=== PATIENT | female | born 1995 | race Caucasian/White ===

== ENCOUNTER 2018-10-19 01:13 | Emergency (ER) | payer SELFPAY ==
[2018-10-19 01:15] VITALS: BP 135/71; PULSE 90; RESP 14; TEMP 36.8; O2SAT 100; BMI 29.0
--- NOTE | 2018-10-19 01:59 | ED.DCSUM_ITS ---
- ER Visit Summary Date of Service: 10/19/18 Chief Complaint: Blood in stool History of Present Illness: The patient is a 22 F with blood in her stool on and off. She noticed this with wiping as well and some in the toilet bowl. She does have hard stools and constipation. She does not take blood thinners. No history of colonoscopy. No family history of polyps or any other rectal or colon pathology. Physical Examination: Afebrile and vital signs unremarkable. No acute distress. Skin appears normal. Abdomen soft. Rectal exam was chaperoned by Gege and shows a sentinel pile. No definite fissure, fistula, hemorrhoid, or other pathology. Test Results: None indicated Emergency Department Course and Treatment: Patient has a history and exam concerning for constipation and hard stools. She will increase her fluid intake, fiber intake. MiraLAX titration. Follow-up with primary care. Return for any new or worsening issues. Treatment Plan: As above Disposition: Discharged Impression: 1. Constipation This note was generated with [employer] dictation software. It may contain incorrect words, spelling, and punctuation that were not noted in review of the chart prior to signing ED Disposition - Plan for ED Patient: Chief Complaint: Abd Pain Referrals: Michael Lawrence [Primary Care Provider] -
--- NOTE | 2018-10-19 01:59 | ED.DEP ---
ED Disposition - Plan for ED Patient: Chief Complaint: Abd Pain Instructions: ED Constipation Prescriptions: Polyethylene Glycol 3350 [Miralax] 17 gm PO DAILY 30 Days #30 packet Referrals: Michael Lawrence [Primary Care Provider] -
[2018-10-19 02:04] VITALS: BP 135/71; PULSE 90; RESP 14; O2SAT 100
== END 2018-10-19 02:08 | disposition home or self-care (01) ==
LOC: ED 02:08
PROVIDERS: Emergency Provider Emergency Medicine
DX: K59.00 Constipation, unspecified (principal); K64.4 Residual hemorrhoidal skin tags; Z72.0 Tobacco use
CPT/HCPCS: 99282

== ENCOUNTER 2019-06-01 03:37 | Emergency (ER) | payer BC, SELFPAY ==
[2019-06-01 03:37] VITALS: BP 118/85; PULSE 87; RESP 16; TEMP 36.4; O2SAT 96; BMI 28.1
--- NOTE | 2019-06-01 03:55 | ED.DCSUM_ITS ---
- ER Visit Summary Date of Service: 06/01/19 Chief Complaint: Bump on leg History of Present Illness: The patient is a 23 F who presents with a bump on her right inner thigh. Is been increasing in size and become more painful over the last 2 to 3 days. No history of prior similar symptoms. No systemic symptoms and review of systems otherwise negative. Physical Examination: Afebrile vitals normal There is about a 1 cm indurated area on the right inner thigh. It is not fluctu ant there is no surrounding cellulitis Test Results: [id number]-[id number] ultrasound does show fluid collection Emergency Department Course and Treatment: Patient presents with a small abscess. It was initially unclear if there was a focal fluid collection. Ultrasound does reveal a focal fluid collection. Area was cleansed with alcohol and then anesthetized with 2 cc of local 1% lidocaine without epinephrine. A stab incision was made with a #11 blade. There was purulent drainage. There is no surrounding cellulitis. I do not believe antibiotics are indicated. She was advised on continued supportive care. She was discharged. Treatment Plan: [] Disposition: Discharge Impression: Right thigh abscess This note was generated with [employer] dictation software. It may contain incorrect words, spelling, and punctuation that were not noted in review of the chart pr ior to signing ED Disposition - Plan for ED Patient: Referrals: Care Physician,No Primary [Primary Care Provider] -
--- NOTE | 2019-06-01 04:02 | ED.DEP ---
ED Disposition - Plan for ED Patient: Instructions: ABSCESS, Incision and Drainage Referrals: Care Physician,No Primary [Primary Care Provider] -
[2019-06-01 04:11] VITALS: BP 118/85; PULSE 87; RESP 16; O2SAT 98
== END 2019-06-01 04:12 | disposition home or self-care (01) ==
PROVIDERS: Emergency Provider Emergency Medicine
DX: L02.415 Cutaneous abscess of right lower limb (principal); Z72.0 Tobacco use
CPT/HCPCS: 10060; 99282

== ENCOUNTER 2019-06-06 15:37 | Emergency (ER) | payer BC, SELFPAY ==
[2019-06-06 15:38] VITALS: BP 118/71; PULSE 83; RESP 18; TEMP 36.2; O2SAT 97; BMI 28.4
--- NOTE | 2019-06-06 15:46 | ED.VISSUMM ---
- ER Visit Summary Date of Service: 06/06/19 Chief Complaint: Abscess right inner thigh History of Present Illness: The patient is a 23 F presenting with abscess right inner thigh. Patient was seen in the ED on June 01 for this complaint. She had an I&D performed at that time. She was not placed on antibiotics. States she believes the abscess has gotten smaller but she continues to have drainage. She denies fever or other complaints. Physical Examination: Vitals are stable. Patient is afebrile. Alert no acute distress. HEENT exam is unremarkable. Lungs are clear and equal bilaterally. Heart is regular rate and rhythm. Abdomen is soft nontender nondistended. Extremities right inner thigh 1 cm indurated abscess with mild drainage. No fluctuance. No surrounding erythema Skin is warm and dry. Remainder of exam is unremarkable. Emergency Department Course and Treatment: The abscess is currently draining and there are no areas of fluctuance. She will be started on clindamycin due to penicillin allergy. Advised to follow-up with Dr. De La Rosa home security professional for no doctor. Advised to return to ED for worsening complaints. Disposition: Discharge home Impression: Abscess right inner thigh This note was generated with [employer] dictation software. It may contain incorrect words, spelling, and punctuation that were not noted in review of the chart prior to signing ED Disposition - Plan for ED Patient: Instructions: ABSCESS, Antiobiotic Treatment Only Prescriptions: Clindamycin [Cleocin] 300 mg PO 4X/DAY #80 cap Prescription Printed Referrals: Ismael De La Rosa MD [NON-STAFF] - Care Physician,No Primary [Primary Care Provider] -
--- NOTE | 2019-06-06 15:52 | ED.DEP ---
ED Disposition - Plan for ED Patient: Instructions: ABSCESS, Antiobiotic Treatment Only Prescriptions: Clindamycin [Cleocin] 300 mg PO 4X/DAY #80 capsule Referrals: Care Physician,No Primary [Primary Care Provider] - Ismael De La Rosa MD [NON-STAFF] -
[2019-06-06] MEDS: Clindamycin HCl 150 MG Capsule 300 MG PO (16:00)
[2019-06-06 16:01] VITALS: TEMP 36.4
== END 2019-06-06 16:02 | disposition home or self-care (01) ==
LOC: ED 15:58
PROVIDERS: Emergency Provider Emergency Medicine
DX: L02.415 Cutaneous abscess of right lower limb (principal); Z88.0 Allergy status to penicillin; Z72.0 Tobacco use
CPT/HCPCS: 99283

== ENCOUNTER 2019-08-17 02:00 | Emergency (ER) | payer BC, SELFPAY ==
[2019-08-17 02:00] VITALS: BP 122/82; PULSE 75; RESP 18; TEMP 36.3; O2SAT 99; BMI 28.6
--- NOTE | 2019-08-17 02:08 | ED.VIS.GEN ---
History of Present Illness Chief Complaint: Allergic Reaction Narrative: This patient is a 23-year-old female who presents due to concern for possible allergic reaction to an influenza vaccination. She had her flu shot 3 days ago. She feels like her arm is swollen and sore. She has tried anti-inflammatories and antihistamines but has had no improvement in symptoms. She has not however had any worsening of symptoms. She denies any fevers shortness of breath vomiting. Past Medical History - Allergies and Home Meds Allergies/Adverse Reactions: Allergies Penicillins Allergy (Verified 08/17/19 02:02) Hives Primary Care Physician: Jose Physician,Briseida Primary [Primary Care Provider] - Past Medical History: None Smoking Status: Current every day smoker Review of Systems All systems negative except as indicated Physical Exam Vital Signs/Narrative: Vital Signs Temp Pulse Resp BP Pulse Ox 08/17/19 02:00 97.4 F L 75 18 122/82 H 99 Inital Vital Signs reviewed: Yes General: Well nourished Head: Normocephalic Eyes: EOMI ENT: Moist mucous membranes Skin: - - I see no objective evidence of an allergic reaction. There is no erythema, no induration, no soft tissue swelling, no rash Diagnostic/Tx/Re-eval - Medical Decision Making Patient has a normal examination. She was reassured. She was advised on supportive care such as cool compresses. She was advised to follow-up with her primary care physician or to return for any new or worsening symptoms and was discharged. ED Disposition - Plan for ED Patient: Disposition: Home or Assisted Living Diagnosis: Encounter for medical screening examination Referrals: Care Physician,No Primary [Primary Care Provider] - Additional Instructions: You were seen today for possible allergic reaction to the influenza vaccination (flu shot). At this point your exam is okay we do not see any signs of a serious allergic reaction. You can use anti-inflammatories such as ibuprofen or Aleve for pain as well as cool compresses to the area. Follow-up with your family doctor. Return if you develop new or worsening symptoms such as difficulty breathing or rash.
[2019-08-17 02:26] VITALS: RESP 16
== END 2019-08-17 02:27 | disposition home or self-care (01) ==
PROVIDERS: Emergency Provider Emergency Medicine
DX: M79.89 Other specified soft tissue disorders (principal); F17.200 Nicotine dependence, unspecified, uncomplicated; Z88.0 Allergy status to penicillin
CPT/HCPCS: 99282

== ENCOUNTER 2020-01-01 01:20 | Emergency (ER) | payer BC, SELFPAY ==
[2020-01-01 01:21] VITALS: BP 125/87; PULSE 78; RESP 16; TEMP 36.9; O2SAT 100; BMI 28.6
--- NOTE | 2020-01-01 01:33 | RAD_ITS ---
STUDY: X-RAY - LEFT SHOULDER REASON FOR EXAM: Female, 24 years old. TURNED LT ARM EARLIER AND FELT A SHARP PAIN IN HER LT SHOULDER TECHNIQUE: 4 view(s) of the shoulder. COMPARISON: None. FINDINGS: Normal glenohumeral articulation. Normal acromioclavicular joint. Normal acromion. Normal humeral head and visualized proximal humerus. The soft tissue structures are unremarkable. Normal visualized pulmonary apex. RAD/Shoulder min 2 Views IMPRESSION: Normal x-ray examination of the shoulder. Electronically Signed: Caitlin Thomson MD at 2:18 EST , Service support ,
--- NOTE | 2020-01-01 03:18 | ED.DCSUM_ITS ---
History of Present Illness Chief Complaint: Upper Extremity Injury Informant: Patient Occurred: Today Mechanism/Context: Work Related Onset: Today Context: Sudden Onset Timing: Continuous Quality of Pain: Sharp Associated Symptoms: Parasthesia - left thumb Narrative: Patient is a 24-year-old female with no past medical history presenting with left shoulder pain. Patient states she works at [employer]. She was reaching back with her left hand when she suddenly felt sharp pain around her left shoulder/shoulder blade. The pain seems to be worse with range of motion. She has slight paresthesia of her left thumb. She is right-hand dominant. She used a heating pad prior to arrival for her pain. She not take any medication for her pain prior to coming in. She states she does not want to file Workmen's Comp. She denies any other complaints at this time. She denies any history of prior injuries to her shoulder. Past Medical History - Allergies and Home Meds Allergies/Adverse Reactions: Allergies Penicillins Allergy (Verified 01/01/20 01:25) Hives Primary Care Physician: Care Physician,No Primary [Primary Care Provider] - Past Medical History: None Surgical History: noncontributory Smoking Status: Light Smoker (<10/day) Review of Systems General: Denies: Chills, Fever, Sweats Cardiovascular: Denies: Chest pain, Palpitations Respiratory: Denies: Dyspnea, Cough Musculoskeletal: Reports: Extremity Pain - Left shoulder. Denies: Back pain, Swelling Skin: Denies: Rash, Wounds Neurological: Reports: Parasthesia - Left thumb. Denies: Headache, Weakness, Numbness Physical Exam Vital Signs/Narrative: Vital Signs Temp Pulse Resp BP Pulse Ox 01/01/20 01:21 98.4 F 78 16 125/87 H 100 Inital Vital Signs reviewed: Yes Left Shoulder: - - Patient does have pain in her shoulder blade area with range of motion however range of motion is intact. No deformity of the shoulder.. Negative for: Abrasion, Contusion, Deformity, Edema, Hematoma, Limited ROM Left Humerus: Negative for: Abrasion, Contusion, Deformity, Edema, Limited ROM Left Elbow: - - No pinpoint tenderness. Negative for: Abrasion, Contusion, Deformity, Hematoma, Limited ROM Left Forearm: Negative for: Abrasion, Contusion, Deformity, Edema, Limited ROM Left Hand: - - Normal strength and range of motion with all intrinsic/extrensic hand muscles. Negative for: Abrasion, Contusion, Deformity, Edema, Limited ROM General: Well nourished, Well developed Head: Normocephalic, Atraumatic ENT: No Trauma, Moist Mucous Membranes Neck: Nontender, Full ROM. Negative for: Spinal Tenderness, Paraspinal Tenderness Cardiovascular: Regular rate, Regular rhythm, No murmurs Respiratory: No distress, CTA bilaterally, Chest nontender Back: Paraspinal Tenderness - Midthoracic, left, - - Patient seems to have her area of pain between the body of the left scapula and paraspinal muscles. Negative for: Spinal Tenderness Skin: Normal color, No rash. Negative for: Trauma Neurological: Alert, Oriented x3, Cranial nerves II-XII grossly intact, Normal Strength, Normal Sensation, - - sensation intact light touch of the left hand and arm. Negative for: Weakness Psychological: Normal affect Diagnostic/Tx/Re-eval Clinical Impression(s) from Imaging Studies Shoulder X-Ray 01/01/20 01:33 IMPRESSION: Normal x-ray examination of the shoulder. Electronically Signed: Caitlin Thomson MD at 2:18 EST , Service support , - Medical Decision Making Patient is evaluated for atraumatic left shoulder pain. The pain is more in her backslash shoulder blade area. I suspect it is musculoskeletal and likely a muscle spasm however not able to palpate specific spasm. Patient will be started on NSAIDs as well as Flexeril. She does have a ride home and is given first dose in the emergency room. She does not want to file Workmen's Compensation. She does not want a work note. Patient is neurovascularly intact. Patient is counseled on signs and symptoms requiring return to the emergency room. Patient verbalizes agreement and understand this plan. Patient discharged home in stable and improved condition. ED Disposition - Plan for ED Patient: Disposition: Home or Assisted Living Diagnosis: Left-sided thoracic back pain Instructions: BACK AND NECK PAIN, General Prescriptions: cycloBENZAPRine HCl [Flexeril] 10 mg PO TID PRN #20 tab PRN Reason: Muscle Spasm Prescription Printed Ibuprofen [Motrin] 600 mg PO Q6H PRN PRN #20 tab PRN Reason: Pain/Inflammation Prescription Printed Referrals: Care Physician,No Primary [Primary Care Provider] - Additional Instructions: Continue to use heat to the area. I suspect you have a muscle that is tight which is causing your pain. Follow-up with your primary care doctor as needed.
[2020-01-01] MEDS: Ibuprofen 600 MG Tablet PO (03:23)
[2020-01-01] MEDS: cycloBENZAPRine HCl 10 MG Tablet PO (03:24)
== END 2020-01-01 04:20 | disposition home or self-care (01) ==
PROVIDERS: Emergency Provider Emergency Medicine
DX: M54.6 Pain in thoracic spine (principal); M25.512 Pain in left shoulder; R20.2 Paresthesia of skin; F17.200 Nicotine dependence, unspecified, uncomplicated; Z88.0 Allergy status to penicillin
CPT/HCPCS: 73030; 99283

== ENCOUNTER 2021-01-26 18:32 | Emergency (ER) | payer OTHER, SELFPAY ==
[2020-10-29 13:23] VITALS: BMI 28.7
[2021-01-26 18:32] VITALS: BP 133/75; PULSE 114; RESP 14; TEMP 37.1; O2SAT 99; BMI 28.1
[2021-01-26 19:00] LABS: Absolute Lymphocyte Count 3.63 X10^3/uL (0.83-4.51); Absolute Neutrophil Count 8.7 X10^3/uL (2.0-7.7); Basophil# 0.07 X10^3/uL; Basophil% 0.5 % (0-1); Eosinophil# 0.04 X10^3/uL; Eosinophils% 0.3 % (0-5); Hematocrit 45.6 % (37-47); Hemoglobin 15.6 g/dL (12.0-15.0); Lymphocyte # 3.63 X10^3/ul (4.0); Mean Corp Hgb Conc 34.2 g/dL (32-36); Mean Corpuscular Hgb 29.7 pg (27.0-32.0); Mean Corpuscular Volume 86.9 fL (81-99); Mean Platelet Vol. 9.9 fl (6.2-12.0); Monocyte# 0.43 X10^3/uL; Monocyte% 3.3 % (0-10); NRBC Flagged by Analyzer 0 % (0-5); Neutrophil # 8.74 X10^3/uL (2.7-7.7); Neutrophil % 67.6 % (47-70); Platelet Count 357 K/mm3 (150-450); RBC Distribution Width CV 12.6 % (11.6-14.6); RBC Distribution Width SD 39.9 fl (35.1-43.9); Red Blood Count 5.25 M/mm3 (4.2-5.4)
[2021-01-26 19:08] LABS: Internal QC Validated? YES +Cl - CLEAR BKGD; Pregnancy, Serum, hCG Quali. NEGATIVE Negative
[2021-01-26 19:13] LABS: Anion Gap 6 (5-15); BUN 9 mg/dL (7-18); BUN/Creat Ratio 8.3 RATIO (10-20); Chloride 110 mmol/L (98-107); Creatinine, Serum 1.08 mg/dL (0.55-1.02); EST Glomerular Filtration Rate 66 mL/min (>60); Est Glom Filt Rate - Afr Amer 79 mL/min (>60); Estimated Creatinine Clearance 65.87 ml/min; Glucose 123 mg/dL (74-106); Potassium 3.7 mmol/L (3.5-5.1); Sodium Level 140 mmol/L (136-145)
[2021-01-26 19:18] LABS: Alcohol, Blood (Medical)-Serum < 3.0 mg/dL
[2021-01-26 19:32] VITALS: RESP 17
--- NOTE | 2021-01-26 19:32 | ED.VIS.GEN ---
History of Present Illness Chief Complaint: Suicidal Informant: Patient Onset: Days Context: Gradual Onset Timing: Continuous Current Severity: Moderate Maximum Severity: Severe Narrative: The patient is a 25-year-old female with history of depression, but no formal diagnosis. She states she is never been on medications. She is not seen a psychiatrist. The patient presents with increasing depression and suicidal thoughts. She states for the past 2 months, she has been having intrusive thoughts of self-harm. She states I just think that life would be better if I was not in it. She states for the past week, she still had thoughts of wanting to shoot herself. She states there is a gun in the house but it is in a safe. She does have history of prior suicidal thoughts. She states when she was 16, she was going to attempt to jump off a bridge but her friend stopped her. She denies fevers or chills. She denies any alcohol use. Prior similar symptoms: Yes Recent Illness/Hospitalization: No Past Medical History - Allergies and Home Meds Allergies/Adverse Reactions: Allergies Penicillins Allergy (Verified 10/29/20 13:06) [place] Primary Care Physician: Jackie Monterroso NP, [employer] [Primary Care Provider] - Prior records reviewed: Yes Past Medical History: None Surgical History: noncontributory Smoking Status: Current every day smoker Review of Systems General: Denies: Chills, Fever, Sweats Eyes: Denies: Visual changes - bilaterally, Diplopia ENT: Denies: Rhinorrhea, Sore throat Cardiovascular: Denies: Chest pain, Palpitations Respiratory: Denies: Dyspnea, Cough, Dyspnea on exertion Gastrointestinal: Denies: Abdominal pain, Nausea, Vomiting, Diarrhea, Melena, Hematochezia Genitourinary: Denies: Dysuria, Hematuria, Frequency Musculoskeletal: Denies: Back pain, Extremity Pain Skin: Denies: Rash, Wounds Neurological: Denies: Headache, Weakness, Numbness Psych: Reports: Depression, Suicidal thoughts Physical Exam Vital Signs/Narrative: Vital Signs Temp Pulse Resp BP Pulse Ox 01/26/21 18:32 98.8 F 114 H 14 133/75 H 99 Inital Vital Signs reviewed: Yes General: Well nourished, Well developed, No Acute Distress Head: Normocephalic, Atraumatic Eyes: Perrl, EOMI ENT: Moist mucous membranes, No rhinorrhea Neck: Supple, Nontender Cardiovascular: Regular rate, Regular rhythm, No murmurs Respiratory: No distress, CTA bilaterally, Chest nontender Abdomen: Soft, Nontender, Nondistended, Normal bowel sounds Back: Nontender, Normal Inspection Extremities: Nontender, No edema Skin: Normal color, No rash Neurological: Alert, Oriented x3, Cranial nerves II-XII grossly intact, Normal Strength, Normal Sensation Psychological: Normal affect, Depressed Diagnostic/Tx/Re-eval Abnormal Lab Results 01/26/21 01/26/21 01/26/21 18:55 18:55 18:55 WBC 13.0 H RBC 5.25 Hgb 15.6 H Hct 45.6 MCV 86.9 MCH 29.7 MCHC 34.2 RDW Std Deviation 39.9 RDW Coeff of [place] 12.6 Plt Count 357 MPV 9.9 Immature Gran % (Auto) 0.300 Neut % (Auto) 67.6 Lymph % (Auto) 28.0 [place] % (Auto) 3.3 Eos % (Auto) 0.3 Baso % (Auto) 0.5 Absolute Neuts (auto) 8.7 H Absolute Lymphs (auto) 3.63 Nucleated RBC % 0 Sodium 140 Potassium 3.7 Chloride 110 H Carbon Dioxide 24.0 Anion Gap 6 BUN 9 Creatinine 1.08 H Estim Creat Clear Calc 65.87 Est GFR (MDRD) Af Amer 79 Est GFR (MDRD) Non-Af 66 BUN/Creatinine Ratio 8.3 L Glucose 123 H Calcium 9.0 Total Bilirubin Direct Bilirubin AST ALT Alkaline Phosphatase Total Protein Albumin Globulin Serum , Qual Urine Opiates Screen Urine Methadone Screen Ur Barbiturates Screen Ur Phencyclidine Scrn Ur Amphetamines Screen U Methamphetamin-MDMA U Benzodiazepines Scrn Urine Cocaine Screen U Cannabinoids Screen Ur Drug Screen Comment Ethyl Alcohol < 3.0 01/26/21 01/26/21 01/26/21 18:55 18:55 18:58 WBC RBC Hgb Hct MCV MCH MCHC RDW Std Deviation RDW Coeff of [place] Plt Count MPV Immature Gran % (Auto) Neut % (Auto) Lymph % (Auto) [place] % (Auto) Eos % (Auto) Baso % (Auto) Absolute Neuts (auto) Absolute Lymphs (auto) Nucleated RBC % Sodium Potassium Chloride Carbon Dioxide Anion Gap BUN Creatinine Estim Creat Clear Calc Est GFR (MDRD) Af Amer Est GFR (MDRD) Non-Af BUN/Creatinine Ratio Glucose Calcium Total Bilirubin 0.40 Direct Bilirubin 0.08 AST 27 ALT 49 Alkaline Phosphatase 96 Total Protein 8.0 Albumin 4.0 Globulin 4.0 Serum , Qual NEGATIVE Urine Opiates Screen NEGATIVE Urine Methadone Screen NEGATIVE Ur Barbiturates Screen NEGATIVE Ur Phencyclidine Scrn NEGATIVE Ur Amphetamines Screen NEGATIVE U Methamphetamin-MDMA NEGATIVE U Benzodiazepines Scrn NEGATIVE Urine Cocaine Screen NEGATIVE U Cannabinoids Screen POSITIVE H Ur Drug Screen Comment Ethyl Alcohol - Rhythm Strip Rhythm Strip: Sinus Rhythm Rate: 80 Ectopy: None - EKG Initial EKG Interpretation: Sinus Rhythm, No Acute Injury Pattern Prior: No Prior - Medical Decision Making The patient presents with increasing depression, suicidal thoughts, and suicidal ideation. Patient underwent medical screening examination. Labs are unremarkable. Tox is positive for THC. Patient is not . Alcohol level was negative. EKG was unremarkable. Liver functions were also unremarkable. At this point, the patient is medically cleared. She was seen in conjunction with social work. Plan will be to transport the patient for inpatient psychiatric hospitalization due to increased suicidal thoughts and plan. Impression 1. Suicidal ideation with plan ED Disposition - Plan for ED Patient: Referrals: Jackie Monterroso NP, [employer] [Primary Care Provider] -
--- NOTE | 2021-01-26 19:39 | EKG12_ITS ---
Test Reason : MENTAL HEALTH Blood Pressure : / mmHG Vent. Rate : 094 BPM Atrial Rate : 094 BPM P-R Int : 146 ms QRS Dur : 078 ms QT Int : 358 ms P-R-T Axes : 051 077 029 degrees QTc Int : 447 ms Normal sinus rhythm Normal ECG Confirmed by MICHELLE ADDISON, COLEEN ([id number]), material expeditor LUCILLE KIRKLAND ([id number]) on 01/28/2021 10:15:42 AM Referred By: MAT Confirmed By:COLEEN MARTINEZ MD
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
[2021-01-26 19:45] LABS: Amphetamine Urine VISTA NEGATIVE (<1000 ng/mL); Barbiturate Urine VISTA NEGATIVE (< 200 ng/mL); Benzodiazepine Urine VISTA NEGATIVE (< 200 ng/mL); Cocaine Urine VISTA NEGATIVE (< 300 ng/mL); Ecstacy Urine VISTA NEGATIVE (< 500 ng/mL); Methadone Urine VISTA NEGATIVE (< 300 ng/mL); PCP Urine VISTA NEGATIVE (< 25 ng/mL); THC Urine VISTA POSITIVE (< 50 ng/mL); Vista UDS pH Range 5
--- NOTE | 2021-01-26 19:57 | CM.ED ---
Social Work Telephone call to [facility]. Katiuska confirms to have open female beds. Clinical information faxed. Pending review. Pati CERDA, TONI
[2021-01-26 20:26] LABS: AST(SGOT) 27 U/L (15-37); Alanine Aminotransfer ALT/SGPT 49 U/L (13-56); Alkaline Phosphatase 96 U/L (45-117); Bilirubin, Direct 0.08 mg/dL (0.00-0.30)
--- NOTE | 2021-01-26 20:32 | CM.ED ---
Social Work Telephone call to [facility]. Geovany confirms to have received clinical information and the nurse is printing it off right now. Pati Brice HAND II CUTTER, JOANIE-S
[2021-01-26 21:15] VITALS: BP 110/65; PULSE 98; RESP 19; TEMP 36.7; O2SAT 97
[2021-01-26 22:18] VITALS: RESP 19
[2021-01-26 22:19] VITALS: BP 110/65; PULSE 80; RESP 19; TEMP 36.7; O2SAT 98
[2021-01-26 23:00] VITALS: RESP 17
--- NOTE | 2021-01-26 23:36 | ED.RN ---
Physicians states no further needs and leaving with patient.
== END 2021-01-26 23:37 ==
PROVIDERS: Emergency Provider Emergency Medicine; PCP Nurse Practitioner Primary Care
DX: F32.9 Major depressive disorder, single episode, unspecified (principal); R45.851 Suicidal ideations; Z20.822 Contact with and (suspected) exposure to COVID-19; F17.200 Nicotine dependence, unspecified, uncomplicated
CPT/HCPCS: 36415; 80048; 80076; 80307; 82077; 84703; 85025; 87426; 93005; 99285